=== PATIENT | male | born 1975 | race Hispanic/Latino ===

== ENCOUNTER → 2024-06-01 | Day surgery (SDC) | payer OTHER ==
[~2024-06-01] MED LIST: ALBUTEROL0.63 MG/3 NEB; LIDOCAINE HCL 2% LOCAL INJ 5 ML SDV VIAL INJ ONE; LOSARTAN POTASS25 MG PO; MIDAZOLAM HCL 2 MG/2 ML VIAL ONE; PROPOFOL IV EMULSION 10 MG/ML 20 ML VIAL ONE
[2024-06-01] MEDS: LACTATED RINGER'S 1,000 ML ONE (10:03)
[2024-06-01 11:55] VITALS: BP 101/65; PULSE 69; RESP 16; TEMP 97.3; O2SAT 97
== END | disposition home or self-care (01) ==
LOC: OR 09:13
PROVIDERS: ATTEND Internal Medicine Gastroenterology
DX: Z12.11 Encounter for screening for malignant neoplasm of colon (principal); D12.2 Benign neoplasm of ascending colon; K64.1 Second degree hemorrhoids; R14.0 Abdominal distension (gaseous); K21.9 Gastro-esophageal reflux disease without esophagitis; I10 Essential (primary) hypertension; Z01.810 Encounter for preprocedural cardiovascular examination; Z79.899 Other long term (current) drug therapy
CPT/HCPCS: 45384; 93005; J2001; J2250; J2704; J7121